=== PATIENT | female | born 1945 | race Caucasian/White ===

== ENCOUNTER 2016-10-15 12:55 | Inpatient (IN) | payer MEDICARE, MEDICAID ==
[2016-10-15] MEDS ORDERED: Ondansetron TAB* 4 MG PO PRN (13:15)
[2016-10-15] MEDS ORDERED: Albuterol HFA INHALER* 8 gm MDI INH PRN (13:15)
[2016-10-15] MEDS: Albuterol 2.5 MG/3 ML NEB.SOL* (0.083%) INH SCH ×3 (14:46→23:27)
[2016-10-15] MEDS: Heparin VIAL(*) 5000 UNITS/ML VIAL (FIVE THOUSAND) SUBCUT SCH ×2 (14:51→21:11)
[2016-10-15] MEDS: NS 0.9% 1000 ML* 1,000 ML IV SCH (14:53)
[2016-10-15] MEDS: Levofloxacin 750 MG IVPREMIX(* 750 MG/150 ML BAG IVPB SCH (15:11)
[2016-10-15] MEDS: Prochlorperazine TAB* 10 MG PO SCH ×2 (16:57→23:20)
[2016-10-15] MEDS: Amitriptyline TAB* 50 MG PO SCH (20:18)
[2016-10-15] MEDS: Gabapentin CAP(*) 300 MG PO SCH (20:18)
[2016-10-15] MEDS: HYDROcodone/ACETAMIN 5-325 MG* 1 TAB PO PRN (21:12)
[2016-10-15] MEDS: Temazepam CAP* 15 MG PO PRN (23:20)
[2016-10-16] MEDS: Albuterol 2.5 MG/3 ML NEB.SOL* (0.083%) INH SCH ×6 (04:16→23:40)
[2016-10-16 04:42] LABS: Comments Flag Yes; Hematocrit 24 % (35-47); Hemoglobin 7.6 g/dl (12.0-16.0); Mean Corpuscular HGB Conc 32 g/dl (31-36); Mean Corpuscular Hemoglobin 30 pg (27-31); Mean Corpuscular Volume 94 fL (80-97); Mean Platelet Volume 9 um3 (7.4-10.4); Red Blood Count 2.54 10^6/ul (4.0-5.4); White Blood Count 5.9 10^3/ul (3.5-10.8)
[2016-10-16 04:43] LABS: Red Cell Distribution Width 28 % (10.5-15)
[2016-10-16 04:53] LABS: BUN/Creatinine Ratio 15.6 (8-20); Calcium 8.1 mg/dL (8.6-10.3); EGFR African American 95.6 (>60); EGFR Non-African American 74.3 (>60); Globulin 2.2 g/dL (2-4); Potassium 4.2 mmol/L (3.5-5.0); Total Bilirubin 0.2 mg/dL (0.2-1.0); Total Protein 5.2 g/dL (6.4-8.9)
[2016-10-16] MEDS: Heparin VIAL(*) 5000 UNITS/ML VIAL (FIVE THOUSAND) SUBCUT SCH ×3 (04:56→20:55)
[2016-10-16] MEDS: Prochlorperazine TAB* 10 MG PO SCH ×4 (04:56→22:51)
[2016-10-16] MEDS: buPROPion SR TAB.SR* 150 MG PO SCH (07:20)
[2016-10-16] MEDS: Fluticasone NASAL SPRAY 50MCG* 16 gm SPRAY BTL BOTH NARES SCH (07:20)
[2016-10-16] MEDS: Docusate CAP* 100 MG PO SCH (07:20)
[2016-10-16] MEDS: Omeprazole CAP* 20 MG PO SCH (07:20)
[2016-10-16] MEDS: Umeclidin 62.5 MDI(NF) 1 INH MDI INH SCH (07:58)
[2016-10-16] MEDS: methylPREDNISolone 125 MG* 2 ML VIAL IV SCH ×2 (09:51→17:20)
--- NOTE | 2016-10-16 09:59 | PN ---
Progress Note - Progress Note SOAP: Subjective: feels much better than yesterday but still SOB with any movement (even brushing teeth). still notes confusion (very clearly confused about how to take meds at home). +intermittent fevers at home to 102, unclear why she could not get it together to call me (part of confusion). Objective: Vital Signs Temp Pulse Resp BP Pulse Ox 97.4 F 84 16 131/53 100 10/16/16 07:32 10/16/16 07:40 10/16/16 07:40 10/16/16 07:32 10/16/16 07:40 sitting up in nad perr eomi op dry rhonchi throughout, mild exp wheezing s1 s2 nl soft nt +bs trace LE edema alert and oriented x 3, but clearly confused on details Laboratory Results - last 24 hr 10/15/16 10/15/16 10/16/16 14:45 14:45 04:00 WBC 5.9 RBC 2.54 L Hgb 7.6 L Hct 24 L MCV 94 MCH 30 MCHC 32 RDW 28 H Plt Count 156 MPV 9 Neut % (Auto) 57.3 Lymph % (Auto) 28.2 Martin % (Auto) 7.6 Eos % (Auto) 6.3 H Baso % (Auto) 0.6 Absolute Neuts (auto) 3.4 Absolute Lymphs (auto) 1.7 Absolute Monos (auto) 0.5 Absolute Eos (auto) 0.4 Absolute Basos (auto) 0 Absolute Nucleated RBC 0 Nucleated RBC % 0 Sodium Potassium Chloride Carbon Dioxide Anion Gap BUN Creatinine Est GFR ( Amer) Est GFR (Non-Af Amer) BUN/Creatinine Ratio Glucose Lactic Acid 1.1 Calcium Total Bilirubin AST ALT Alkaline Phosphatase Lactate Dehydrogenase 297 H Total Protein Albumin Globulin Albumin/Globulin Ratio 10/16/16 04:00 WBC RBC Hgb Hct MCV MCH MCHC RDW Plt Count MPV Neut % (Auto) Lymph % (Auto) Martin % (Auto) Eos % (Auto) Baso % (Auto) Absolute Neuts (auto) Absolute Lymphs (auto) Absolute Monos (auto) Absolute Eos (auto) Absolute Basos (auto) Absolute Nucleated RBC Nucleated RBC % Sodium 140 D Potassium 4.2 Chloride 106 Carbon Dioxide 28 Anion Gap 6 BUN 12 Creatinine 0.77 Est GFR ( Amer) 95.6 Est GFR (Non-Af Amer) 74.3 BUN/Creatinine Ratio 15.6 Glucose 83 Lactic Acid Calcium 8.1 L Total Bilirubin 0.20 AST 37 ALT 15 Alkaline Phosphatase 109 H Lactate Dehydrogenase Total Protein 5.2 L Albumin 3.0 L Globulin 2.2 Albumin/Globulin Ratio 1.4 Hydrocodone Bitart/Acetaminophen ([place] 5-325 Tab*) 2 tab PO Q6H PRN PRN Reason: PAIN Last Admin: 10/15/16 21:12 Dose: 2 tab Albuterol (Ventolin 2.5 Mg/3 Ml Neb.Alessia*) 2.5 mg INH [id number] AWAKE [facility] Last Admin: 10/16/16 07:36 Dose: 2.5 mg Albuterol (Ventolin Hfa Inhaler*) 2 puff INH Q6H PRN PRN Reason: SHORTNESS OF BREATH Amitriptyline HCl (Elavil Tab*) 50 mg PO BEDTIME [facility] Last Admin: 10/15/16 20:18 Dose: 50 mg Bupropion HCl (Wellbutrin Sr Tab*) 150 mg PO DAILY ALICIA Last Admin: 10/16/16 07:20 Dose: 150 mg Docusate Sodium (Colace Cap*) 100 mg PO DAILY [facility] Last Admin: 10/16/16 07:20 Dose: 100 mg Fluticasone Propionate (Flonase Nasal [place] 50mcg*) 2 spray BOTH NARES DAILY [facility] Last Admin: 10/16/16 07:20 Dose: 2 spray Gabapentin (Neurontin Cap(*)) 600 mg PO BEDTIME [facility] Last Admin: 10/15/16 20:18 Dose: 600 mg Heparin Sodium (Porcine) (Heparin Flush Port (Ivad)) 5 ml FLUSH DAILY [facility] PRN Reason: Protocol Last Admin: 10/16/16 07:23 Dose: Not Given Heparin Sodium (Porcine) (Heparin Vial(*)) 5,000 units SUBCUT Q8HR [facility] Last Admin: 10/16/16 04:56 Dose: 5,000 units Levofloxacin/Dextrose (Levaquin 750 Mg Ivpremix(*)) 750 mg in 150 mls @ 100 mls /hr IVPB Q24H [facility] Last Admin: 10/15/16 15:11 Dose: 100 mls/hr Sodium Chloride (Ns 0.9% 1000 Ml*) 1,000 mls @ 50 mls/hr IV .PER RATE [facility] Last Admin: 10/15/16 14:53 Dose: 50 mls/hr Methylprednisolone Sodium Succinate (Solu-Medrol 125mg *) 60 mg IV Q8H ALICIA Omeprazole (Prilosec Cap*) 20 mg PO DAILY ALICIA PRN Reason: Protocol Last Admin: 10/16/16 07:20 Dose: 20 mg Ondansetron HCl (Zofran Tab*) 4 mg PO Q4HR PRN PRN Reason: NAUSEA/VOMITING Prochlorperazine (Compazine Tab*) 10 mg PO Q6HR [facility] Last Admin: 10/16/16 04:56 Dose: 10 mg Temazepam (Restoril Cap*) 15 mg PO BEDTIME PRN PRN Reason: INSOMNIA Last Admin: 10/15/16 23:20 Dose: 15 mg Umeclidinium [place] (Incruse Ellipta Mdi (Nf)) 1 inh INH DAILY [facility] Last Admin: 10/16/16 07:58 Dose: Not Given Assessment: 71 yo F w metastatic ER+ IDC and advanced COPD on xeloda admitted with confusion , fevers and worsening SOB in the setting of confusing her chemotherapeutics. She has never had problems managing her meds in the past that I am aware of. I am concerned that this may be related to GEAR KEEPER disease. Alternatively, she may have been more hypoxic or infected at home (reflected by reported fevers and worsening SOB) and therefore had toxic metabolic encephalopathy. I would like to rule out GEAR KEEPER mets and check a chest CT. While we are doing that I will restage her abdomen with a CT as well. Plan: COPD exacerbation: fevers at home, SOB with simple activities will add solumedrol. if no dramatic improvement by tomorrow I will ask Dr. Hylton to see her cont levaquin PNA dosing for now pending CT breast cancer: on xeloda, but clearly confused dosing (seems that she has been on continuously since 09/26, though difficult to tell). if she continues this regimen will need to get pill boxes for home and enlist help of son and -restaging scans as above, note that tumor markers have been stable AMS: as above will check head CT with contrast (while restaging systemically and evaluating lungs) dnr
[2016-10-16] MEDS ORDERED: Iohexol 300* (CONTRAST) 10 ML SDV IV ONE (11:47)
[2016-10-16] MEDS: NS 0.9% 1000 ML* 1,000 ML IV SCH (13:00)
--- NOTE | 2016-10-16 13:23 | RAD ---
Indication: Altered mental status. History of breast carcinoma. Comparison: February 06, 2016 MRI. Technique: Noncontrast CT vertex of skull through foramen magnum. Subsequent to this contrast-enhanced head CT was performed with Omnipaque 300 IV contrast. Report: Unremarkable cerebral sulci, ventricles, and basal cisterns. Negative for johnson matter white matter obscuration, intra or extra-axial hemorrhage, or mass effect. No intra or extra-axial lesions or abnormal foci of enhancement evident. Unremarkable orbital contents. No suspicious lesion of the calvarium or skull base evident. Clear visualized paranasal sinuses and mastoid air spaces. Unremarkable scalp. IMPRESSION: 1. Negative for intracranial hemorrhage or CT stigmata of ischemic stroke. 2. Negative for mass effect or abnormal enhancement to indicate metastatic disease. Correlate with clinical assessment and consider contrast-enhanced MRI for further evaluation if deemed appropriate.
--- NOTE | 2016-10-16 13:52 | RAD ---
INDICATION: Left breast cancer with lumpectomy 3 2015-restaging. Lung carcinoma. Liver metastasis. Left upper lobectomy. COMPARISON: CT chest/abdomen/pelvis July 28, 2016 TECHNIQUE: Axial source images were obtained from the thoracic inlet to the symphysis pubis following administration of oral and intravenous contrast. 76 mL Omnipaque 300 was utilized. Coronal and sagittal reconstructed images were acquired. CHEST FINDINGS: Neck/thyroid: The visualized neck to include the thyroid appear normal. Chest wall: There are no acute abnormalities of the bony thorax or chest wall. There is a right-sided Tvjtsq-t-Orgy catheter. There is no supraclavicular, infraclavicular, or axillary lymphadenopathy. Lungs : There is volume loss left chest with chronic pleural and parenchymal changes. There is also reticulonodular change with multiple tiny linear and rounded opacities. This represents a stable finding and remains indeterminant. There is also mild areas of parenchymal scarring in the right chest. Additional, previously described masslike areas of lung parenchymal change have improved or have resolved. There are findings of emphysema. The appearance is unchanged. The There are no endobronchial lesions. Cardiomediastinal structures: The heart is normal in size. There is mucosal shift to the left There is no pericardial effusion. There is no evidence of aortic aneurysm or dissection. The pulmonary vessels appear normal. There is no mediastinal or hilar adenopathy. The esophagus appears normal. Pleura : There are chronic flow and parenchymal changes as noted above.. ABDOMINAL/PELVIC FINDINGS: Liver: The liver is normal in size. There are multiple hypodense liver lesions consistent with metastasis. These appears slightly more necrotic but overall very little changed in size and number. There is one lesion, however, in the anterior right hepatic lobe on reference image 21/94 which is significantly larger. This measures 1.8 cm, formerly 0.8 cm. There is no ductal dilatation. Gallbladder: Cholelithiasis, unchanged. Spleen: The spleen is normal in size. There are no masses. Pancreas: There is no evidence of pancreatic mass or ductal dilatation. Adrenal glands: There is no evidence of adrenal mass. Kidneys: The kidneys are normal in size and position. There are prompt nephrograms and there is prompt excretion bilaterally. There are no renal parenchymal masses. There is no evidence of nephrolithiasis. Adenopathy: There is no evidence of adenopathy by size criteria. Fluid collections: There are no free or localized fluid collections. Vessels:The aorta and IVC appear normal GI tract: There are no acute CT bowel findings. There is no obstruction. The stomach and small bowel appear normal. The lower GI tract is normal. The cecum, ileocecal valve, and terminal ileum appear normal. The appendix is visualized and appear normal. Pelvic organs: The uterus and adnexa appear normal Bladder: There are no bladder masses. Abdominal and pelvic soft tissues: The extraperitoneal abdominal and pelvic soft tissues appear normal.. Osseous structures: There are no acute osseous findings. There is a stable sclerotic lesion of T11. IMPRESSION: 1. Stable postoperative changes left hemithorax. Stable reticulonodular infiltrative change with underlying chronic parenchymal scarring and pleural reactive change. Parenchymal opacities in the right chest have essentially resolved. 2. Liver metastasis with mild progression. 3. Cholelithiasis 4. Stable sclerotic lesion T11.
[2016-10-16] MEDS: Levofloxacin 750 MG IVPREMIX(* 750 MG/150 ML BAG IVPB SCH (14:45)
[2016-10-16] MEDS: Gabapentin CAP(*) 300 MG PO SCH (19:53)
[2016-10-16] MEDS: Amitriptyline TAB* 50 MG PO SCH (19:54)
[2016-10-16] MEDS: Temazepam CAP* 15 MG PO PRN (22:50)
[2016-10-16] MEDS: HYDROcodone/ACETAMIN 5-325 MG* 1 TAB PO PRN (22:51)
[2016-10-17] MEDS: methylPREDNISolone 125 MG* 2 ML VIAL IV SCH ×3 (01:50→17:43)
[2016-10-17] MEDS: Acetaminophen TAB* 325 MG PO PRN (02:39)
[2016-10-17] MEDS: Prochlorperazine TAB* 10 MG PO SCH ×3 (05:07→17:43)
[2016-10-17] MEDS: Heparin VIAL(*) 5000 UNITS/ML VIAL (FIVE THOUSAND) SUBCUT SCH ×3 (05:08→20:57)
[2016-10-17] MEDS: Albuterol 2.5 MG/3 ML NEB.SOL* (0.083%) INH SCH ×6 (06:53→23:02)
[2016-10-17] MEDS: buPROPion SR TAB.SR* 150 MG PO SCH (10:38)
[2016-10-17] MEDS: Docusate CAP* 100 MG PO SCH (10:38)
[2016-10-17] MEDS: Omeprazole CAP* 20 MG PO SCH (10:39)
[2016-10-17] MEDS: NS 0.9% 1000 ML* 1,000 ML IV SCH (10:52)
[2016-10-17] MEDS: Umeclidin 62.5 MDI(NF) 1 INH MDI INH SCH (10:58)
[2016-10-17 12:19] LABS: Albumin 3.1 g/dL (3.2-5.2); BUN/Creatinine Ratio 14.1 (8-20); Calcium 8.2 mg/dL (8.6-10.3); EGFR African American 85.3 (>60); EGFR Non-African American 66.3 (>60); Globulin 2.4 g/dL (2-4); Magnesium 1.7 mg/dL (1.9-2.7); Potassium 3.9 mmol/L (3.5-5.0); Total Bilirubin 0.3 mg/dL (0.2-1.0); Total Protein 5.5 g/dL (6.4-8.9)
[2016-10-17] MEDS: Levofloxacin TAB* 250 MG PO SCH (13:18)
[2016-10-17] MEDS: Fluticasone NASAL SPRAY 50MCG* 16 gm SPRAY BTL BOTH NARES SCH (13:19)
[2016-10-17] MEDS: Amitriptyline TAB* 50 MG PO SCH (20:55)
[2016-10-17] MEDS: Gabapentin CAP(*) 300 MG PO SCH (20:55)
[2016-10-17] MEDS: HYDROcodone/ACETAMIN 5-325 MG* 1 TAB PO PRN (20:57)
[2016-10-18] MEDS: Prochlorperazine TAB* 10 MG PO SCH ×5 (00:05→23:37)
[2016-10-18] MEDS: Temazepam CAP* 15 MG PO PRN ×2 (00:06→23:45)
[2016-10-18] MEDS: Acetaminophen TAB* 325 MG PO PRN (00:12)
[2016-10-18] MEDS: methylPREDNISolone 125 MG* 2 ML VIAL IV SCH (02:03)
[2016-10-18] MEDS: Albuterol 2.5 MG/3 ML NEB.SOL* (0.083%) INH SCH ×6 (03:12→23:17)
[2016-10-18] MEDS: Heparin VIAL(*) 5000 UNITS/ML VIAL (FIVE THOUSAND) SUBCUT SCH ×4 (05:36→23:37)
[2016-10-18] MEDS: HYDROcodone/ACETAMIN 5-325 MG* 1 TAB PO PRN ×2 (05:37→23:44)
--- NOTE | 2016-10-18 08:20 | PN ---
Progress Note - Progress Note SOAP: Subjective: []Not feeling well. Has SOB and chest tightness. Energy poor. Had fever of 99.2 , took Tylenal. BM yesterday. Eating fine. Did walk around yesterday and did fine. Acetaminophen (Tylenol Tab*) 650 mg PO Q6H PRN PRN Reason: PAIN Last Admin: 10/18/16 00:12 Dose: 650 mg Hydrocodone Bitart/Acetaminophen ([place] 5-325 Tab*) 2 tab PO Q6H PRN PRN Reason: PAIN Last Admin: 10/18/16 05:37 Dose: 2 tab Albuterol (Ventolin 2.5 Mg/3 Ml Neb.Alessia*) 2.5 mg INH [id number] AWAKE [facility] Last Admin: 10/18/16 07:16 Dose: 2.5 mg Albuterol (Ventolin Hfa Inhaler*) 2 puff INH Q6H PRN PRN Reason: SHORTNESS OF BREATH Amitriptyline HCl (Elavil Tab*) 50 mg PO BEDTIME [facility] Last Admin: 10/17/16 20:55 Dose: 50 mg Bupropion HCl (Wellbutrin Sr Tab*) 150 mg PO DAILY [facility] Last Admin: 10/17/16 10:38 Dose: 150 mg Docusate Sodium (Colace Cap*) 100 mg PO DAILY [facility] Last Admin: 10/17/16 10:38 Dose: 100 mg Fluticasone Propionate (Flonase Nasal [place] 50mcg*) 2 spray BOTH NARES DAILY [facility] Last Admin: 10/17/16 13:19 Dose: 2 spray Gabapentin (Neurontin Cap(*)) 600 mg PO BEDTIME [facility] Last Admin: 10/17/16 20:55 Dose: 600 mg Heparin Sodium (Porcine) (Heparin Flush Port (Ivad)) 5 ml FLUSH DAILY [facility] PRN Reason: Protocol Last Admin: 10/17/16 10:57 Dose: Not Given Heparin Sodium (Porcine) (Heparin Vial(*)) 5,000 units SUBCUT Q8HR [facility] Last Admin: 10/18/16 05:43 Dose: 5,000 units Sodium Chloride (Ns 0.9% 1000 Ml*) 1,000 mls @ 50 mls/hr IV .PER RATE [facility] Last Admin: 10/17/16 10:52 Dose: 50 mls/hr Levofloxacin (Levaquin Tab*) 750 mg PO Q24H [facility] Last Admin: 10/17/16 13:18 Dose: 750 mg Methylprednisolone Sodium Succinate (Solu-Medrol 125mg *) 60 mg IV Q8H [facility] Last Admin: 10/18/16 02:03 Dose: 60 mg Omeprazole (Prilosec Cap*) 20 mg PO DAILY ALICIA PRN Reason: Protocol Last Admin: 10/17/16 10:39 Dose: 20 mg Ondansetron HCl (Zofran Tab*) 4 mg PO Q4HR PRN PRN Reason: NAUSEA/VOMITING Prochlorperazine (Compazine Tab*) 10 mg PO Q6HR [facility] Last Admin: 10/18/16 05:37 Dose: 10 mg Temazepam (Restoril Cap*) 15 mg PO BEDTIME PRN PRN Reason: INSOMNIA Last Admin: 10/18/16 00:06 Dose: 15 mg Umeclidinium [place] (Incruse Ellipta Mdi (Nf)) 1 inh INH DAILY [facility] Last Admin: 10/17/16 10:58 Dose: Not Given Objective: [] Vital Signs Temp Pulse Resp BP Pulse Ox 99.2 F 90 16 133/41 98 10/17/16 20:02 10/18/16 07:17 10/18/16 07:17 10/17/16 20:02 10/18/16 07:17 HEENT - pale, no thrush Wheezing, no crackles. Good air movement. RRR S1S2 +BS, NT/ND Ext no c/e, clubbing. Neuro- AAO x 3 today. not confused. Assessment: 71 yo F w metastatic ER+ IDC and advanced COPD on xeloda admitted with confusion , fevers and worsening SOB in the setting of confusing her chemotherapeutics. Doing better but still SOB and with wheezing on Solumedrol, low grade fever. Plan: 1. COPD exacerbation. Continue Levaquin and will change to Prednisone 40 mg daily. No change in inhalers. 2. Anemia. Re-check today and transfuse for Hgb < 8.0 3. Breast cancer. Xeloda will be on hold until follow up with Dr. Valdez. 4. AMS. Improved, follow 5. Disposition. Home, she does not want to go today but is willing. Will follow up once we have labs today.
[2016-10-18] MEDS: Docusate CAP* 100 MG PO SCH (08:51)
[2016-10-18] MEDS: Omeprazole CAP* 20 MG PO SCH (08:51)
[2016-10-18] MEDS: Fluticasone NASAL SPRAY 50MCG* 16 gm SPRAY BTL BOTH NARES SCH (08:52)
[2016-10-18] MEDS: buPROPion SR TAB.SR* 150 MG PO SCH (08:52)
[2016-10-18] MEDS: NS 0.9% 1000 ML* 1,000 ML IV SCH ×2 (08:53→20:37)
[2016-10-18 09:22] LABS: Hematocrit 24 % (35-47); Hemoglobin 7.4 g/dl (12.0-16.0); Mean Corpuscular HGB Conc 32 g/dl (31-36); Mean Corpuscular Hemoglobin 30 pg (27-31); Mean Corpuscular Volume 95 fL (80-97); Mean Platelet Volume 9 um3 (7.4-10.4); Red Blood Count 2.47 10^6/ul (4.0-5.4); White Blood Count 13.1 10^3/ul (3.5-10.8)
[2016-10-18 09:26] LABS: Comments Flag Yes; Red Cell Distribution Width 28 % (10.5-15)
[2016-10-18] MEDS ORDERED: Acetaminophen TAB* 325 MG PO ONE (10:55)
[2016-10-18] MEDS: predniSONE TAB* 20 MG PO SCH (11:40)
[2016-10-18] MEDS: Levofloxacin TAB* 250 MG PO SCH (11:40)
[2016-10-18] MEDS: Umeclidin 62.5 MDI(NF) 1 INH MDI INH SCH (11:45)
[2016-10-18] MEDS: Gabapentin CAP(*) 300 MG PO SCH (20:17)
[2016-10-18] MEDS: Amitriptyline TAB* 50 MG PO SCH (20:17)
[2016-10-19] MEDS: Albuterol 2.5 MG/3 ML NEB.SOL* (0.083%) INH SCH ×3 (03:56→10:46)
[2016-10-19] MEDS: Heparin VIAL(*) 5000 UNITS/ML VIAL (FIVE THOUSAND) SUBCUT SCH (05:38)
[2016-10-19] MEDS: Prochlorperazine TAB* 10 MG PO SCH ×2 (05:38→11:13)
[2016-10-19 05:52] LABS: Hematocrit 32 % (35-47); Hemoglobin 10.3 g/dl (12.0-16.0); Mean Corpuscular HGB Conc 32 g/dl (31-36); Mean Corpuscular Hemoglobin 29 pg (27-31); Mean Corpuscular Volume 90 fL (80-97); Mean Platelet Volume 8 um3 (7.4-10.4); Red Blood Count 3.53 10^6/ul (4.0-5.4); Red Cell Distribution Width 25 % (10.5-15)
[2016-10-19 05:56] LABS: Comments Flag Yes
[2016-10-19 06:18] LABS: Albumin 2.8 g/dL (3.2-5.2); BUN/Creatinine Ratio 23.5 (8-20); Calcium 8.1 mg/dL (8.6-10.3); EGFR African American 110.3 (>60); EGFR Non-African American 85.8 (>60); Magnesium 1.8 mg/dL (1.9-2.7); Potassium 3.2 mmol/L (3.5-5.0); Total Bilirubin 0.5 mg/dL (0.2-1.0); Total Protein 4.8 g/dL (6.4-8.9)
[2016-10-19] MEDS: Umeclidin 62.5 MDI(NF) 1 INH MDI INH SCH (09:01)
[2016-10-19] MEDS: buPROPion SR TAB.SR* 150 MG PO SCH (09:02)
[2016-10-19] MEDS: Fluticasone NASAL SPRAY 50MCG* 16 gm SPRAY BTL BOTH NARES SCH (09:02)
[2016-10-19] MEDS: predniSONE TAB* 20 MG PO SCH (09:02)
[2016-10-19] MEDS: Docusate CAP* 100 MG PO SCH (09:02)
[2016-10-19] MEDS: Omeprazole CAP* 20 MG PO SCH (09:02)
[2016-10-19] MEDS: Levofloxacin TAB* 250 MG PO SCH (11:13)
[2016-10-19 11:33] VITALS: BP 141/58
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
== END 2016-10-19 13:19 | disposition home or self-care (01) | DRG 190 ==
LOC: MEDTELE 14:00
PROVIDERS: ADMIT Internal Medicine Hematology & Oncology; ATTEND Internal Medicine Hematology & Oncology
PROC: 30233N1 Transfusion of Nonautologous Red Blood Cells into Peripheral Vein, Percutaneous Approach (ICD-10-PCS; principal; 2016-10-18)
DX: J44.1 Chronic obstructive pulmonary disease with (acute) exacerbation (principal); G92 Toxic encephalopathy; C78.7 Secondary malignant neoplasm of liver and intrahepatic bile duct; C79.81 Secondary malignant neoplasm of breast; C34.90 Malignant neoplasm of unspecified part of unspecified bronchus or lung; E86.0 Dehydration; Z99.81 Dependence on supplemental oxygen; D64.9 Anemia, unspecified; M81.0 Age-related osteoporosis without current pathological fracture; Z87.891 Personal history of nicotine dependence; Z79.899 Other long term (current) drug therapy
CPT/HCPCS: 36415; 70470; 71020; 71260; 74177; 80053; 82140; 83605; 83615; 83735; 85025; 85027; 85060; 86300; 86850; 86900; 86901; 86922; 87040; 87899; 94640; 94760; 96360; 99214; 99222; 99232; 99233; 99239; A9270-GY; G0463; J1642; J1644; J2930; J7512; P9040; Q0164; Q9967

== ENCOUNTER 2016-10-21 18:09 | Emergency (ER) | payer MEDICARE, MEDICAID ==
[2016-10-21] MEDS ORDERED: NS 0.9% 1000 ML* 1,000 ML IV ONE (19:16)
[2016-10-21 19:34] LABS: Urine Bilirubin Negative (Negative); Urine Glucose Negative (Negative); Urine Nitrite Negative (Negative)
--- NOTE | 2016-10-21 19:34 | RAD ---
INDICATION: Overdose COMPARISON: October 15, 2016 TECHNIQUE: An AP portable view obtained at 1932 hours is submitted. FINDINGS: Bones/Soft Tissues: There are no acute bony findings. There is osteopenia with a scoliotic deformity. There is a right-sided Aswafw-h-Diwf catheter, unchanged Cardiomediastinal: Cardiac silhouette is unchanged. There is mediastinal shift to the left. Lungs: There is pleural and parenchymal change in the left chest which appears chronic. The right lung is clear and hyperinflated. Pleura: No definitive effusions. Other: None IMPRESSION: POSTOPERATIVE CHANGE LEFT CHEST WITH VOLUME LOSS. CHRONIC PLEURAL AND PARENCHYMAL CHANGES. RIGHT LUNG CLEAR. NO SIGNIFICANT INTERVAL CHANGE.
[2016-10-21 20:06] LABS: Hematocrit 34 % (35-47); Mean Corpuscular HGB Conc 33 g/dl (31-36); Mean Corpuscular Hemoglobin 30 pg (27-31); Mean Corpuscular Volume 90 fL (80-97); Mean Platelet Volume 8 um3 (7.4-10.4); Red Blood Count 3.73 10^6/ul (4.0-5.4); White Blood Count 6.4 10^3/ul (3.5-10.8)
[2016-10-21 20:18] LABS: Comments Flag Yes
[2016-10-21 20:19] LABS: Red Cell Distribution Width 25 % (10.5-15)
[2016-10-21 20:22] LABS: ALT 18 U/L (7-52); AST 35 U/L (13-39); Alkaline Phosphatase 89 U/L (34-104); Anion Gap 4 mmol/L (2-11); Blood Urea Nitrogen 12 mg/dL (6-24); CO2 Carbon Dioxide 34 mmol/L (22-32); Calcium 8.2 mg/dL (8.6-10.3); Chloride 104 mmol/L (101-111); Creatine Kinase 29 U/L (10-223); EGFR African American 98.5 (>60); EGFR Non-African American 76.6 (>60); Glucose 65 mg/dL (70-100); Potassium 3.1 mmol/L (3.5-5.0); Sodium 142 mmol/L (133-145)
[2016-10-21] MEDS ORDERED: Potassium Chlor TAB* 20 MEQ TAB.ER PO ONE (20:42)
[2016-10-21 20:51] LABS: Acetaminophen < 15 mcg/mL; Alcohol < 10 mg/dL (<10); Salicylate < 2.50 mg/dL (<30)
[2016-10-21 21:46] VITALS: BP 130/58
--- NOTE | 2016-10-21 21:46 | ED ---
linda Parham Timothy, scribed for Tom Smith MD on 10/21/16 at 1918 . Substance Abuse/Use - HPI Summary HPI Summary: Cinthya Mcduffie is a 71 yo female [facility] with grogginess and fatigue ater possibly taking 2 sleeping pills too many. Per her , he aroused Pt at 1400 today after she had gone to bed 2200 last night, and Pt was groggy and stated she wanted to go back to sleep, so stayed with her to monitor her status. At 1800 Pt was still drowsy and stated that she may have taken 2 additional estazolam pills by accident last night. She is not in any current pain. Per her in room, she has no prior Hx of overdose, but takes sleeping pills every night to sleep. Pt presented to [facility] for COPD and was discharged 10/19/16. Per Pt's family, she had similar Sx of confusion and lethargy prior to her admission to [facility]. Her Mhx includes heart murmur, palpitations, scoliosis, COPD, lung CA, PNA, bronchoplmonary dysplasia, pulmonary edema, GERD, ulcer, irritable bowel, tubal ligation, osteoperosis, arthritis, depression, anemia, chemotherapy, shingles, and tobacco use. Her PCP is Dr. Contreras. - History Of Current Complaint Chief Complaint: EDOverdose Stated Complaint: POSSIBLE OVERDOSE Time Seen by Provider: 10/21/16 19:12 ?: No Onset/Duration of Drug/ETOH Abuse: Hours Ingestion History: Type/Name Of Drug - etazolam Overdose Characteristics: Oral Timing Of Abuse: Daily Severity Initially: Moderate Severity Currently: Moderate Character: Lethargic Aggravating Factor(s): Nothing Alleviating Factor(s): Nothing Associated Signs And Symptoms: Other: - fatigue, grogginess Related Hx: Drug/Alcohol Last Used @ - 2200 10/20/16 - Allergies/Home Medications Allergies/Adverse Reactions: Allergies Allergy/AdvReac Type Severity Reaction Status Date / Time No Known Allergies Allergy Verified 07/28/16 11:44 Home Medications: Home Medications Albuterol HFA INHALER* [Ventolin HFA Inhaler*] 2 puff INH Q6H PRN 10/21/16 [ History Confirmed 10/21/16] Alendronate (NF) [Fosamax (NF)] 70 mg PO WEEKLY 10/21/16 [History Confirmed ] Ergocalciferol CAP* [Drisdol CAP*] 50,000 unit PO WEEKLY 10/21/16 [History Confirmed 10/21/16] Esomeprazole(NF) [NexIUM(NF)] 40 mg PO BID 10/21/16 [History Confirmed 10/21/16] Estazolam 1 - 2 mg PO BEDTIME 10/21/16 [History Confirmed 10/21/16] Fluticasone NASAL SPRAY 50MCG* [Flonase NASAL SPRAY 50MCG*] 2 spray BOTH NARES DAILY 10/21/16 [History Confirmed 10/21/16] Levofloxacin TAB* [Levaquin TAB*] 750 mg PO DAILY 10/21/16 [History Confirmed ] Nabumetone TAB* [Relafen TAB*] 500 - 1,000 mg PO DAILY PRN 10/21/16 [History Confirmed 10/21/16] Umeclidin 62.5 MDI(NF) [Incruse ELLIPTA MDI (NF)] 62.5 mcg IN DAILY 10/21/16 [ History Confirmed 10/21/16] predniSONE TAB* [Deltasone TAB*] 40 mg PO DAILY 10/21/16 [History Confirmed ] PMH/Surg Hx/FS Hx/Imm Hx Endocrine/Hematology History: Reports: Hx Anemia Denies: Hx Anticoagulant Therapy, Hx Blood Disorders, Hx Blood Transfusions, Hx Bone Marrow Disease, Hx Diabetes, Hx Systemic Lupus Erythematosus, Hx Sickle Cell Disease, Hx Thyroid Disease, Hx Unexplained Bleeding, Other Endocrine/ Hematological Disorders Cardiovascular History: Reports: Hx Angina - DENIES, Hx Congenital Heart Disease , Other Cardiovascular Problems/Disorders - "HOLE IN HEART X MANY YRS" Denies: Hx Aneurysm, Hx Angioplasty, Hx Auto Implanted Cardiovert Defib, Hx Cardiac Arrest, Hx Cardiomegaly, Hx Congestive Heart Failure, Hx Coronary Artery Disease, Hx Deep Vein Thrombosis, Hx Hypercholesterolemia, Hx Hypotension , Hx Hypertension, Hx Pacemaker/ICD, Hx Peripheral Vascular Disease, Hx Rheumatic Fever, Hx Syncope, Hx Valvular Heart Disease Respiratory History: Reports: Hx Asthma - DAILY MEDS, Hx Bronchopulmonary Dysplasia, Hx Chronic Bronchitis, Hx Chronic Obstructive Pulmonary Disease (COPD ), Hx Lung Cancer, Hx Pleural Effusion, Hx Pneumonia, Hx Pulmonary Edema - HX OF FLUID IN LUNGS 4-5 YEARS AGO, Hx Seasonal Allergies Denies: Hx Cystic Fibrosis, Hx Pulmonary Embolism, Hx Sleep Apnea Comment Only: Other Respiratory Problems/Disorders - HX LEFT LUNG CANCER GI History: Reports: Hx Gastroesophageal Reflux Disease, Hx Irritable Bowel, Hx Ulcer, Other GI Disorders - CHRONIC CONSTIPATION Denies: Hx Cirrhosis, Hx Crohn's Disease, Hx Diverticulosis, Hx Gall Bladder Disease, Hx Gastrointestinal Bleed, Hx Hiatal Hernia, Hx Jaundice, Hx Obstructive Bowel, Hx Ileostomy, Hx Pyloric Stenosis History: Denies: Hx Acute Renal Failure, Hx Benign Prostatic Hyperplasia, Hx Chronic Renal Failure, Hx Dialysis, Hx Kidney Infection, Hx Kidney Stones, Hx Renal Disease, Other Problems/Disorders Musculoskeletal History: Reports: Hx Arthritis - BILATERAL HANDS AND BACK, Hx Back Problems, Hx Bursitis, Hx Orthopedic Injury - broken elbow >10 yrs ago, Hx Scoliosis Denies: Hx Rheumatoid Arthritis - Osteoporosis, Hx Congenital Bone Abnormalities, Hx Fibromyalgia, Hx Gout, Hx Osteoporosis, Hx Tendonitis Sensory History: Reports: Hx Cataracts - BILAT, Hx Contacts or Glasses Denies: Hx Hearing Aid Opthamlomology History: Reports: Hx Cataracts - BILAT, Hx Contacts or Glasses Neurological History: Denies: Hx Dementia, Hx Seizures Psychiatric History: Reports: Hx Depression - NO PROBLEMS NOW Denies: Hx Panic Disorder, Hx Substance Abuse - Cancer History Cancer Type, Location and Year: Lung Cancer 2005; Left Breast Cancer 2015; Liver Cancer 2015 Hx Chemotherapy: Yes Hx Radiation Therapy: No - Surgical History Surgery Procedure, Year, and Place: LT UPPER LUNG LOBECTOMY -2010. Cardiac Cath X2 [facility]--no stents--. MEDIASTINOSCOPY 2008 [place]. 1974 Tubal Ligation [facility]. LUMBAR DISC SURGERY APPROX 25 YRS AGO, lumpectomy left. Tonsillectomy at age 18. [place] 2016. endoscopy & colonoscopy at [facility]. TONSILLECTOMY A CHILD,. OVARIAN CYSECTOMY [facility]. LEFT BREAST LUMPECTOMY 08/07 [facility] Hx Anesthesia Reactions: No Infectious Disease History: No Infectious Disease History: Reports: Hx Shingles Denies: Hx Clostridium Difficile, Hx Hepatitis, Hx Human Immunodeficiency Virus (HIV), Hx of Known/Suspected MRSA, Hx Tuberculosis, Hx Known/Suspected VRE , Hx Known/Suspected VRSA, History Other Infectious Disease, Traveled Outside the [place] in Last 30 Days - Family History Known Family History: Positive: Cardiac Disease, Hypertension, Diabetes - Social History Alcohol Use: None Substance Use Type: Reports: None Hx Tobacco Use: Yes - quit 10 yrs ago, 50pk/yr ho smoking Smoking Status (MU): Former Smoker Type: Cigarettes Amount Used/How Often: 1 PPD FOR ABOUT 50 YEARS Length of Time of Smoking/Using Tobacco: 50 YEARS Have You Smoked in the Last Year: No Review of Systems Positive: Fatigue - "grogginess" Eyes: Negative ENT: Negative Cardiovascular: Negative Respiratory: Negative Gastrointestinal: Negative Genitourinary: Negative Musculoskeletal: Negative Skin: Negative Neurological: Negative Psychological: Normal All Other Systems Reviewed And Are Negative: Yes Physical Exam Triage Information Reviewed: Yes Vital Signs On Initial Exam: Initial Vitals Temp Pulse Resp BP Pulse Ox 98.1 F 74 18 136/55 96 10/21/16 18:30 10/21/16 18:30 10/21/16 18:30 10/21/16 18:30 10/21/16 18:30 Vital Signs Reviewed: Yes Appearance: Positive: No Pain Distress - sluggish to react, Thin Skin: Positive: Warm Head/Face: Positive: Normal Head/Face Inspection Eyes: Positive: EOMI, WINSTON, Conjunctiva Clear ENT: Positive: Hearing grossly normal Neck: Positive: Supple Respiratory/Lung Sounds: Positive: Clear to Auscultation, Breath Sounds Present Cardiovascular: Positive: RRR Abdomen Description: Positive: Nontender, Soft Bowel Sounds: Positive: Present Musculoskeletal: Positive: Strength/ROM Intact Neurological: Positive: Sensory/Motor Intact Psychiatric: Positive: Affect/Mood Appropriate - Miguel Coma Scale Coma Scale Total: 15 Diagnostics - Vital Signs Vital Signs Temp Pulse Resp BP Pulse Ox 10/21/16 18:30 98.1 F 74 18 136/55 96 - Laboratory Lab Results: Lab Results 10/21/16 10/21/16 10/21/16 Range/Units 18:50 20:00 20:00 WBC 6.4 (3.5-10.8) 10^3/ul RBC 3.73 L (4.0-5.4) 10^6/ul Hgb 11.0 L (12.0-16.0) g/dl Hct 34 L (35-47) % MCV 90 (80-97) fL MCH 30 (27-31) pg MCHC 33 (31-36) g/dl RDW 25 H (10.5-15) % Plt Count 126 L (150-450) 10^3/ul MPV 8 (7.4-10.4) um3 Neut % (Auto) 63.9 (38-83) % Lymph % (Auto) 21.1 L (25-47) % [place] % (Auto) 8.1 (1-9) % Eos % (Auto) 6.4 H (0-6) % Baso % (Auto) 0.5 (0-2) % Absolute Neuts (auto) 4.1 (1.5-7.7) 10^3/ul Absolute Lymphs (auto) 1.4 (1.0-4.8) 10^3/ul Absolute Monos (auto) 0.5 (0-0.8) 10^3/ul Absolute Eos (auto) 0.4 (0-0.6) 10^3/ul Absolute Basos (auto) 0 (0-0.2) 10^3/ul Absolute Nucleated RBC 0 10^3/ul Nucleated RBC % 0 Sodium 142 (133-145) mmol/L Potassium 3.1 L (3.5-5.0) mmol/L Chloride 104 (101-111) mmol/L Carbon Dioxide 34 H (22-32) mmol/L Anion Gap 4 (2-11) mmol/L BUN 12 (6-24) mg/dL Creatinine 0.75 (0.51-0.95) mg/dL Est GFR ( Amer) 98.5 (>60) Est GFR (Non-Af Amer) 76.6 (>60) BUN/Creatinine Ratio 16.0 (8-20) Glucose 65 L (70-100) mg/dL Lactic Acid (0.5-2.0) mmol/L Calcium 8.2 L (8.6-10.3) mg/dL Total Bilirubin 0.60 (0.2-1.0) mg/dL AST 35 (13-39) U/L ALT 18 (7-52) U/L Alkaline Phosphatase 89 (34-104) U/L Total Creatine Kinase 29 (10-223) U/L Total Protein 5.0 L (6.4-8.9) g/dL Albumin 3.0 L (3.2-5.2) g/dL Globulin 2.0 (2-4) g/dL Albumin/Globulin Ratio 1.5 (1-3) Urine Color Straw Urine Appearance Clear Urine pH 6.0 (5-9) Ur Specific [place] 1.006 L (1.010-1.030) Urine Protein Negative (Negative) Urine Ketones Negative (Negative) Urine Blood Negative (Negative) Urine Nitrate Negative (Negative) Urine Bilirubin Negative (Negative) Urine Urobilinogen Negative (Negative) Ur Leukocyte Esterase Negative (Negative) Urine Glucose Negative (Negative) Salicylates < 2.50 (<30) mg/dL Acetaminophen < 15 mcg/mL Serum Alcohol < 10 (<10) mg/dL 10/21/16 Range/Units 20:00 WBC (3.5-10.8) 10^3/ul RBC (4.0-5.4) 10^6/ul Hgb (12.0-16.0) g/dl Hct (35-47) % MCV (80-97) fL MCH (27-31) pg MCHC (31-36) g/dl RDW (10.5-15) % Plt Count (150-450) 10^3/ul MPV (7.4-10.4) um3 Neut % (Auto) (38-83) % Lymph % (Auto) (25-47) % [place] % (Auto) (1-9) % Eos % (Auto) (0-6) % Baso % (Auto) (0-2) % Absolute Neuts (auto) (1.5-7.7) 10^3/ul Absolute Lymphs (auto) (1.0-4.8) 10^3/ul Absolute Monos (auto) (0-0.8) 10^3/ul Absolute Eos (auto) (0-0.6) 10^3/ul Absolute Basos (auto) (0-0.2) 10^3/ul Absolute Nucleated RBC 10^3/ul Nucleated RBC % Sodium (133-145) mmol/L Potassium (3.5-5.0) mmol/L Chloride (101-111) mmol/L Carbon Dioxide (22-32) mmol/L Anion Gap (2-11) mmol/L BUN (6-24) mg/dL Creatinine (0.51-0.95) mg/dL Est GFR ( Amer) (>60) Est GFR (Non-Af Amer) (>60) BUN/Creatinine Ratio (8-20) Glucose (70-100) mg/dL Lactic Acid 0.5 (0.5-2.0) mmol/L Calcium (8.6-10.3) mg/dL Total Bilirubin (0.2-1.0) mg/dL AST (13-39) U/L ALT (7-52) U/L Alkaline Phosphatase (34-104) U/L Total Creatine Kinase (10-223) U/L Total Protein (6.4-8.9) g/dL Albumin (3.2-5.2) g/dL Globulin (2-4) g/dL Albumin/Globulin Ratio (1-3) Urine Color Urine Appearance Urine pH (5-9) Ur Specific [place] (1.010-1.030) Urine Protein (Negative) Urine Ketones (Negative) Urine Blood (Negative) Urine Nitrate (Negative) Urine Bilirubin (Negative) Urine Urobilinogen (Negative) Ur Leukocyte Esterase (Negative) Urine Glucose (Negative) Salicylates (<30) mg/dL Acetaminophen mcg/mL Serum Alcohol (<10) mg/dL Result Diagrams: 10/21/16 20:00 10/21/16 20:00 Lab Statement: Any lab studies that have been ordered have been reviewed, and results considered in the medical decision making process. - Radiology CXR Xray Interpretation: No Acute Changes - IMPRESSION: POSTOPERATIVE CHANGE LEFT CHEST WITH VOLUME LOSS. CHRONIC PLEURAL AND PARENCHYMAL CHANGES. RIGHT LUNG CLEAR. NO SIGNIFICANT INTERVAL CHANGE. Radiology Interpretation Completed By: Radiologist - EKG 1936 Cardiac Rate: NL - 67 BPM EKG Interpretation: NSR @ 67 BPM, normal EKG. Re-Evaluation - Re-Evaluation First Eval Change: Improved Course/Dx - Course Assessment/Plan: Cinthya Mcduffie is a 71 yo female presenting [facility] with grogginess and fatigue after possibly taking 2 extra pills of extazolam last night at 2200. She also presented with confusion and lethargy prior to her admission to [facility] for COPD, from which she was discharged 10/19/16. In the ED course she received IV fluids and a K[place] Con ER tab. Her CXR suggests no significant interval change. Her EKG is WNL. After clinical examination and review of her lab and inmaging studies, she will be discharged home with accidental overdose with appropriate insructions. - Diagnoses Provider Diagnoses: Accidental overdose Discharge - Discharge Plan Condition: Improved Disposition: HOME Patient Education Materials: Adult Overdose (ED) Referrals: Gilberto Altamirano DO [Primary Care Provider] - 2 Days Additional Instructions: Please follow up with your primary care physician regarding your visit to the emergency department today. Return to the emergency department with any new or recurring symptoms. The documentation as recorded by the linda yadav Timothy accurately reflects the service I personally performed and the decisions made by me, Tom Smith MD.
== END 2016-10-21 22:08 | disposition home or self-care (01) ==
LOC: ED 18:09
DX: T42.4X1A Poisoning by benzodiazepines, accidental (unintentional), initial encounter (principal); R53.83 Other fatigue; Y92.9 Unspecified place or not applicable
CPT/HCPCS: 36415; 71010; 80053; 80320; 80329; 81003; 82550; 83605; 85025; 93005; 99283; A9270-GY; G0480